=== PATIENT | female | born 1985 | race Caucasian/White ===

== ENCOUNTER 2023-03-04 10:43 | Emergency (ER) | payer MEDICAID ==
[~2023-03-04] VITALS: Ht 167.6 cm; Wt 66.8 kg
--- NOTE | 2023-03-04 12:39 | NUR ---
I AGREE WITH THE ASSESSMENT DONE BY MARCEL OLSON LVN.
[2023-03-04] MEDS ORDERED: dexamethasone sod phosphate 10mg/ml inj IM STA (12:41)
[2023-03-04] MEDS ORDERED: SUMAtriptan succ. 6 MG/0.5ml vial SQ ONE (12:45)
[2023-03-04] MEDS ORDERED: proCHLORperazine 10 MG/2 ml inj IM ONE (12:45)
[2023-03-04] MEDS ORDERED: SUMA100T PO (12:46)
[2023-03-04 14:05] VITALS: BP 104/69; PULSE 65; RESP 17; TEMP 97.9; O2SAT 96
== END 2023-03-04 14:08 | disposition home or self-care (01) ==
LOC: ER 10:44
DX: G43.909 Migraine, unspecified, not intractable, without status migrainosus (principal); Z79.899 Other long term (current) drug therapy
CPT/HCPCS: 96372; 99284; J0780; J1100; J3030

== ENCOUNTER 2023-05-28 14:16 | Emergency (ER) | payer MEDICAID, OTHER ==
[~2023-05-28] VITALS: Ht 167.6 cm; Wt 68.5 kg
[2023-05-28 14:24] VITALS: TEMP 98.3
[2023-05-28] MEDS: HYDROcodone/acetaminophen 5mg/325mg tablet PO ONE (14:49)
[2023-05-28] MEDS: propofol 10mg/ml 20ml vial IV ONE (15:00)
[2023-05-28] MEDS: ondansetron/PF 4mg/2ml inj IV ONE (15:04)
[2023-05-28] MEDS: morphine 4 MG/ML inj SYRINge IV ONE (15:05)
[2023-05-28] MEDS: normal saline 1000ML IV soln IVB ONE (15:31)
[2023-05-28 16:02] VITALS: RESP 18; O2SAT 98
[2023-05-28 16:22] VITALS: BP 135/76; PULSE 63; RESP 16; O2SAT 100
== END 2023-05-28 16:53 | disposition home or self-care (01) ==
LOC: ER 14:17
DX: S43.005A Unspecified dislocation of left shoulder joint, initial encounter (principal); X58.XXXA Exposure to other specified factors, initial encounter; Y93.89 Activity, other specified; Y92.89 Other specified places as the place of occurrence of the external cause; Y99.8 Other external cause status
CPT/HCPCS: 23650; 73020; 73030; 96361; 96374; 96375; 99152; 99285; J2270; J2405; J7030; A4565; A4620